=== PATIENT | male | born 1970 | race Caucasian/White ===

== ENCOUNTER 2020-06-05 23:16 | Emergency (ER) | payer MEDICARE ==
[~2020-06-05] VITALS: Ht 185.4 cm; Wt 68.0 kg
[2020-06-05] MEDS ORDERED: OXYBUTYNIN 5 MG5 M2 PO (23:38)
[2020-06-05] MEDS ORDERED: HYDROCODON-ACE1 EAC7 PO (23:39)
[2020-06-05] MEDS ORDERED: OXYCONTIN40 MG PO (23:40)
[2020-06-06 00:12] VITALS: BP 112/72
== END 2020-06-06 00:12 | disposition home or self-care (01) ==
LOC: M.ERS 23:16
DX: T83.098A Other mechanical complication of other urinary catheter, initial encounter (principal); Y84.8 Other medical procedures as the cause of abnormal reaction of the patient, or of later complication, without mention of misadventure at the time of the procedure; Y92.89 Other specified places as the place of occurrence of the external cause

== ENCOUNTER 2020-06-12 19:49 | Emergency (ER) | payer MEDICARE ==
[~2020-06-12 19:49] MED LIST: HYDROCODON-ACE1 EAC7 PO; OXYBUTYNIN 5 MG5 M2 PO; OXYCONTIN40 MG PO
== END 2020-06-12 20:13 | disposition left against medical advice (07) ==
LOC: M.ERS 19:49
DX: Z53.21 Procedure and treatment not carried out due to patient leaving prior to being seen by health care provider (principal)